=== PATIENT | female | born 2005 | race Caucasian/White ===

== ENCOUNTER → 2024-03-28 | Outpatient (CLI) | payer BC, SELFPAY ==
[2024-03-28 10:14] LABS: Basophils % (Auto) 1 % (0-2.5); Eosinophils # (Auto) 0.1 Thou/mm3 (0.0-0.5); Eosinophils % (Auto) 1 % (0-10); Hematocrit 37.8 % (36.0-46.0); Hemoglobin 12.5 g/dL (12.0-16.0); Immature Granulocytes % (Auto) 1 % (0-0); Immature Granulocytes Auto 0.05 Thou/mm3 (0.00-0.00); Lymphocytes # (Auto) 1.7 Thou/mm3 (1.0-5.0); Lymphocytes % (Auto) 22 % (10-50); Mean Corpuscular HGB Conc 33.1 g/dl (31.0-37.0); Mean Corpuscular Hemoglobin 30.1 pg (25.0-35.0); Mean Corpuscular Volume 91 fL (80-100); Monocytes # (Auto) 0.5 Thou/mm3 (0.0-0.8); Monocytes % (Auto) 6 % (0-12); Neutrophils # (Auto) 5.5 Thou/mm3 (1.8-7.7); Neutrophils % (Auto) 70 % (37-80); Nucleated Red Blood Cell % 0 /100 WBC (0); Platelet Count 144 Thou/mm3 (140-440); RDW Standard Deviation 39.9 fL (36.4-46.3); Red Blood Count 4.15 Miln/mm3 (4.00-5.20)
[2024-03-28 10:44] LABS: Alanine Aminotransferase < 7 U/L (10-49); Albumin, Serum 4.3 gm/dL (3.5-5.0); Albumin/Globulin Ratio 1.9 (1.2-2.2); Alkaline Phosphatase 108 U/L (46-116); Anion Gap 7 (7-16); Aspartate Amino Transferase 14 U/L (0-34); BUN/Creatinine Ratio 13 Ratio (12-20); Bilirubin,Total 0.9 mg/dL (0.3-1.2); Blood Urea Nitrogen 9 mg/dL (9-23); Calcium 9.8 mg/dL (8.3-10.6); Calcium (Corrected) 9.8 mg/dL (8.5-10.1); Carbon Dioxide 25.5 mMol/L (20.0-31.0); Chloride 104 mMol/L (98-107); Creatinine (Component) 0.7 mg/dL (0.6-1.3); Globulin 2.3 gm/dL (2.3-3.5); Glucose 90 mg/dL (74-106); Osmolality,Calculated 270 (275-295); Potassium 4.2 mMol/L (3.4-5.1); Sodium 136 mMol/L (136-145); Total Protein 6.6 gm/dL (5.7-8.2); Uric Acid 5.6 mg/dL (3.1-7.8); eGFR > 60 See Note
[2024-03-28 10:47] LABS: INR 0.9 (0.9-1.3); Partial Thromboplastin Time 25.4 Seconds (22.0-36.0); Prothrombin Time 10.3 Seconds (9.0-12.2)
== END | disposition home or self-care (01) ==
PROVIDERS: PCP Family Medicine; Referring Provider Specialist; Visit Provider Specialist
DX: I10 Essential (primary) hypertension (principal)
CPT/HCPCS: 36415; 80053; 84550; 85025; 85610; 85730

== ENCOUNTER → 2024-03-30 | Outpatient (CLI) | payer BC, SELFPAY ==
[2024-03-30 14:17] LABS: Creatinine, Urine Volume 975 mL/24hr (600-1800); Protein Total, Urine Volume 975 mL/24hr (600-1800)
[2024-03-30 14:29] LABS: Creatinine, 24 Hour Urine 1.1 gm/24hr (0.6-1.8); Creatinine,Urine 115 mg/dL (30-125); Protein Total, 24 hr Urine 156 mg/24hr (<149); Protein Total, Urine 16 mg/dL (1-14)
== END | disposition home or self-care (01) ==
LOC: SLDO 13:21
PROVIDERS: Referring Provider Specialist; Visit Provider Specialist
DX: I10 Essential (primary) hypertension (principal)
CPT/HCPCS: 82570; 84156

== ENCOUNTER → 2024-04-18 | Outpatient (CLI) | payer BC, MEDICAID, SELFPAY ==
[2024-04-19 15:42] LABS: BVAG Candida Negative (Negative); Bacterial Vaginosis Markers Negative (Negative); Candida glabrata Positive (Negative); Candida krusei PCR Negative (Negative); Trichomonas Negative (Negative)
== END | disposition home or self-care (01) ==
PROVIDERS: Referring Provider Specialist; Visit Provider Specialist
DX: Z34.83 Encounter for supervision of other normal pregnancy, third trimester (principal)
CPT/HCPCS: 81514

== ENCOUNTER 2024-04-24 15:36 | Observation (INO) | payer BC, MEDICAID, SELFPAY ==
[2024-04-24 15:43] VITALS: BMI 26.6
[2024-04-24 16:06] VITALS: BP 122/73; PULSE 75
[2024-04-24] MEDS: BETAMET ACET/BETAMET NA PH (Celestone) 6 MG/ML VIAL 12 MG IM (16:19)
[2024-04-24 16:22] VITALS: BP 125/84; PULSE 66
[2024-04-24 16:25] LABS: Collection Type, Urine Clean Catch
[2024-04-24 16:30] LABS: Basophils % (Auto) 0 % (0-2.5); Eosinophils % (Auto) 0 % (0-10); Hematocrit 33.8 % (36.0-46.0); Hemoglobin 11.2 g/dL (12.0-16.0); Immature Granulocytes % (Auto) 0 % (0-0); Immature Granulocytes Auto 0.03 Thou/mm3 (0.00-0.00); Lymphocytes # (Auto) 2.7 Thou/mm3 (1.0-5.0); Lymphocytes % (Auto) 39 % (10-50); Mean Corpuscular HGB Conc 33.1 g/dl (31.0-37.0); Mean Corpuscular Hemoglobin 29.7 pg (25.0-35.0); Mean Corpuscular Volume 90 fL (80-100); Monocytes # (Auto) 0.4 Thou/mm3 (0.0-0.8); Monocytes % (Auto) 6 % (0-12); Neutrophils # (Auto) 3.6 Thou/mm3 (1.8-7.7); Neutrophils % (Auto) 53 % (37-80); Nucleated Red Blood Cell % 0 /100 WBC (0); Platelet Count 113 Thou/mm3 (140-440); Red Blood Count 3.77 Miln/mm3 (4.00-5.20); White Blood Count 6.8 Thou/mm3 (4.5-11.0)
[2024-04-24 16:36] VITALS: BP 116/63; PULSE 69
[2024-04-24 16:50] LABS: Bilirubin,Urine Negative (Negative); Blood,Urine Negative (Negative); Clarity,Urine Clear (Clear/Hazy); Color,Urine Lt-Yellow (Lt Yel-Yel); Glucose, Urine Negative (Negative); Ketones,Urine Negative (Negative); Leukocyte Esterase,Urine Negative (Negative); Nitrite,Urine Negative (Negative); PH,Urine 6.5 (5.0-7.0); Protein,Urine Negative (Neg - Trace); RBC,Urine 4 /hpf (0-3); Specific Gravity,Urine 1.017 (1.001-1.035); Squamous Epithelial Cell,Urine 2 /hpf (0-5); Urobilinogen,Urine Negative mg/dL (0.0-1.0); WBC,Urine 1 /hpf (0-5)
[2024-04-24 16:51] VITALS: BP 128/78; PULSE 69
[2024-04-24 16:56] LABS: Alanine Aminotransferase 12 U/L (10-49); Albumin, Serum 3.9 gm/dL (3.5-5.0); Albumin/Globulin Ratio 1.7 (1.2-2.2); Alkaline Phosphatase 145 U/L (46-116); Anion Gap 10 (7-16); Aspartate Amino Transferase 16 U/L (0-34); BUN/Creatinine Ratio 10 Ratio (12-20); Bilirubin,Total 0.8 mg/dL (0.3-1.2); Blood Urea Nitrogen 7 mg/dL (9-23); Calcium 8.6 mg/dL (8.3-10.6); Calcium (Corrected) 8.7 mg/dL (8.5-10.1); Carbon Dioxide 19.2 mMol/L (20.0-31.0); Chloride 105 mMol/L (98-107); Creatinine (Component) 0.7 mg/dL (0.6-1.3); Estimated Creatinine Clearance 147.9 mL/min (>60); Globulin 2.3 gm/dL (2.3-3.5); Glucose 79 mg/dL (74-106); LDH (Lactate Dehydrogenase) 189 U/L (120-246); Osmolality,Calculated 265 (275-295); Potassium 4.1 mMol/L (3.4-5.1); Sodium 134 mMol/L (136-145); Total Protein 6.2 gm/dL (5.7-8.2); Uric Acid 6.8 mg/dL (3.1-7.8); eGFR > 60 See Note
[2024-04-24 17:06] VITALS: BP 121/79; PULSE 67
[2024-04-24 17:19] LABS: Fibrinogen 427 mg/dL (175-375); INR 0.9 (0.9-1.3); Partial Thromboplastin Time 25.6 Seconds (22.0-36.0); Prothrombin Time 9.8 Seconds (9.0-12.2)
[2024-04-24 17:22] VITALS: BP 121/77; PULSE 64
== END 2024-04-24 17:30 | disposition home or self-care (01) ==
PROVIDERS: Admitting Provider Specialist; Visit Provider Specialist
DX: O26.893 Other specified pregnancy related conditions, third trimester (principal); Z3A.36 36 weeks gestation of pregnancy; R03.0 Elevated blood-pressure reading, without diagnosis of hypertension
CPT/HCPCS: 36415; 59025; 59899; 80053; 81001; 83615; 84550; 85025; 85384; 85610; 85730; 96372; J0702

== ENCOUNTER 2024-04-25 16:49 | Observation (INO) | payer BC, MEDICAID, SELFPAY ==
[2024-04-25] VITALS (30 sets, daily range): BP systolic 117–136; BP diastolic 64–91; PULSE 64–86; O2SAT 98–99; BMI 27.1
[2024-04-25 17:39] LABS: Collection Type, Urine Clean Catch
[2024-04-25] MEDS: BETAMET ACET/BETAMET NA PH (Celestone) 6 MG/ML VIAL 12 MG IM (17:41)
[2024-04-25 17:43] LABS: Collection Time,Urine 1640 Hours; Protein Total, Urine Volume 1600 mL/24hr (600-1800); Total Volume,Urine 1600 mL (600-1800)
[2024-04-25 17:46] LABS: Bacteria,Urine Rare; Bilirubin,Urine Negative (Negative); Blood,Urine Negative (Negative); Clarity,Urine Clear (Clear/Hazy); Color,Urine Lt-Yellow (Lt Yel-Yel); Glucose, Urine Negative (Negative); Ketones,Urine Negative (Negative); Leukocyte Esterase,Urine Positive (Negative); Nitrite,Urine Negative (Negative); PH,Urine 6.5 (5.0-7.0); Protein,Urine Negative (Neg - Trace); RBC,Urine 4 /hpf (0-3); Specific Gravity,Urine 1.012 (1.001-1.035); Squamous Epithelial Cell,Urine 11 /hpf (0-5); Urobilinogen,Urine Negative mg/dL (0.0-1.0); WBC,Urine 3 /hpf (0-5)
[2024-04-25 17:47] LABS: Patient Height,Urine 69 Inches
[2024-04-25 18:11] LABS: Basophils % (Auto) 0 % (0-2.5); Eosinophils % (Auto) 0 % (0-10); Hematocrit 31.3 % (36.0-46.0); Hemoglobin 10.8 g/dL (12.0-16.0); Immature Granulocytes % (Auto) 1 % (0-0); Immature Granulocytes Auto 0.05 Thou/mm3 (0.00-0.00); Lymphocytes # (Auto) 3.4 Thou/mm3 (1.0-5.0); Lymphocytes % (Auto) 32 % (10-50); Mean Corpuscular HGB Conc 34.5 g/dl (31.0-37.0); Mean Corpuscular Hemoglobin 29.9 pg (25.0-35.0); Mean Corpuscular Volume 87 fL (80-100); Monocytes # (Auto) 0.9 Thou/mm3 (0.0-0.8); Monocytes % (Auto) 8 % (0-12); Neutrophils # (Auto) 6.4 Thou/mm3 (1.8-7.7); Neutrophils % (Auto) 59 % (37-80); Nucleated Red Blood Cell % 0 /100 WBC (0); Platelet Count 104 Thou/mm3 (140-440); RDW Standard Deviation 38.5 fL (36.4-46.3); Red Blood Count 3.61 Miln/mm3 (4.00-5.20); White Blood Count 10.7 Thou/mm3 (4.5-11.0)
[2024-04-25 18:40] LABS: Alanine Aminotransferase 12 U/L (10-49); Albumin/Globulin Ratio 1.8 (1.2-2.2); Alkaline Phosphatase 142 U/L (46-116); Anion Gap 7 (7-16); Aspartate Amino Transferase 19 U/L (0-34); BUN/Creatinine Ratio 11 Ratio (12-20); Bilirubin,Total 0.5 mg/dL (0.3-1.2); Blood Urea Nitrogen 9 mg/dL (9-23); Carbon Dioxide 24.8 mMol/L (20.0-31.0); Chloride 103 mMol/L (98-107); Creatinine (Component) 0.8 mg/dL (0.6-1.3); Estimated Creatinine Clearance 130.6 mL/min (>60); Globulin 2.2 gm/dL (2.3-3.5); Glucose 84 mg/dL (74-106); LDH (Lactate Dehydrogenase) 159 U/L (120-246); Osmolality,Calculated 267 (275-295); Potassium 4.1 mMol/L (3.4-5.1); Sodium 135 mMol/L (136-145); Total Protein 6.2 gm/dL (5.7-8.2); Uric Acid 6.8 mg/dL (3.1-7.8); eGFR > 60 See Note
[2024-04-25 18:46] LABS: Fibrinogen 352 mg/dL (175-375); INR 0.9 (0.9-1.3); Partial Thromboplastin Time 23.8 Seconds (22.0-36.0); Prothrombin Time 9.9 Seconds (9.0-12.2)
[2024-04-25 18:56] LABS: Creatinine 24 Hour,Urine 1.1 gm/24hr (0.6-1.5); Creatinine,Urine 67 mg/dL (30-125); Patient Weight,Urine 185 Pounds; Protein Total, 24 hr Urine 256 mg/24hr (<149); Protein Total, Urine 16 mg/dL (1-14)
[2024-04-25 18:57] LABS: Creatinine Clearance Urine 1 mL/min (90-139); Serum Creatinine Result 0.8 mg/dL
== END 2024-04-25 20:00 | disposition home or self-care (01) ==
PROVIDERS: Admitting Provider Specialist; Referring Provider Specialist; Visit Provider Specialist
DX: Z34.03 Encounter for supervision of normal first pregnancy, third trimester (principal); Z36.89 Encounter for other specified antenatal screening; Z3A.37 37 weeks gestation of pregnancy
CPT/HCPCS: 36415; 59899; 80053; 81001; 82575; 83615; 84156; 84550; 85025; 85384; 85610; 85730; 96372; J0702

== ENCOUNTER 2024-05-02 15:13 | Inpatient (IN) | payer BC, MEDICAID, SELFPAY ==
[2024-05-02] VITALS (45 sets, daily range): BP systolic 0–140; BP diastolic 0–103; PULSE 70–129; RESP 16; TEMP 36.8; O2SAT 97–99; BMI 27.1
[2024-05-02] MEDS: RINGERS LACTATED 1000 ML 1,000 ML 100 ML IV (16:00)
[2024-05-02 16:11] LABS: Basophils % (Auto) 0 % (0-2.5); Eosinophils # (Auto) 0.1 Thou/mm3 (0.0-0.5); Eosinophils % (Auto) 1 % (0-10); Hematocrit 35.7 % (36.0-46.0); Immature Granulocytes % (Auto) 0 % (0-0); Immature Granulocytes Auto 0.04 Thou/mm3 (0.00-0.00); Lymphocytes # (Auto) 4.5 Thou/mm3 (1.0-5.0); Lymphocytes % (Auto) 48 % (10-50); Mean Corpuscular HGB Conc 33.6 g/dl (31.0-37.0); Mean Corpuscular Volume 86 fL (80-100); Monocytes # (Auto) 0.7 Thou/mm3 (0.0-0.8); Monocytes % (Auto) 7 % (0-12); Neutrophils % (Auto) 43 % (37-80); Nucleated Red Blood Cell % 0 /100 WBC (0); Platelet Count 135 Thou/mm3 (140-440); RDW Standard Deviation 38.4 fL (36.4-46.3); Red Blood Count 4.14 Miln/mm3 (4.00-5.20); White Blood Count 9.3 Thou/mm3 (4.5-11.0)
[2024-05-02 16:36] LABS: Collection Type, Urine Clean Catch
[2024-05-02 16:54] LABS: Syphilis Nonreactive (Nonreactive)
[2024-05-02 16:56] LABS: Alanine Aminotransferase 17 U/L (10-49); Albumin, Serum 4.2 gm/dL (3.5-5.0); Albumin/Globulin Ratio 1.8 (1.2-2.2); Alkaline Phosphatase 168 U/L (46-116); Anion Gap 9 (7-16); Aspartate Amino Transferase 19 U/L (0-34); BUN/Creatinine Ratio 13 Ratio (12-20); Bilirubin,Total 0.6 mg/dL (0.3-1.2); Blood Urea Nitrogen 12 mg/dL (9-23); Calcium 8.9 mg/dL (8.3-10.6); Calcium (Corrected) 8.9 mg/dL (8.5-10.1); Carbon Dioxide 21.4 mMol/L (20.0-31.0); Chloride 104 mMol/L (98-107); Creatinine (Component) 0.9 mg/dL (0.6-1.3); Globulin 2.3 gm/dL (2.3-3.5); Glucose 100 mg/dL (74-106); LDH (Lactate Dehydrogenase) 242 U/L (120-246); Osmolality,Calculated 267 (275-295); Sodium 134 mMol/L (136-145); Total Protein 6.5 gm/dL (5.7-8.2); eGFR > 60 See Note
[2024-05-02 16:58] LABS: Bilirubin,Urine Negative (Negative); Blood,Urine Negative (Negative); Clarity,Urine Clear (Clear/Hazy); Color,Urine Yellow (Lt Yel-Yel); Glucose, Urine Negative (Negative); Hyaline Casts,Urine < 1 /hpf (0-1); Ketones,Urine Negative (Negative); Leukocyte Esterase,Urine Negative (Negative); Nitrite,Urine Negative (Negative); PH,Urine 6.5 (5.0-7.0); Protein,Urine 1+ (Neg - Trace); RBC,Urine 2 /hpf (0-3); Specific Gravity,Urine 1.021 (1.001-1.035); Squamous Epithelial Cell,Urine 1 /hpf (0-5); Urobilinogen,Urine Negative mg/dL (0.0-1.0); WBC,Urine 2 /hpf (0-5)
--- NOTE | 2024-05-02 17:00 | PD.LDHP ---
Documentation for date of: 05/02/24 OB Labor/Induct. HPI History of Present Illness History of present illness: H and P dictated in Nuance [id number] History of Present Adequate Care: Yes Labs Labs: Negative: Hepatitis B, HIV, Chlamydia, Gonorrhea and Group Beta Strep Meds Home Medications and Allergies Home Medications ?Medication ?Instructions ?Recorded ?Confirmed ?Type vitamin-ferrous sulfate 1 tab PO QDAY 04/24/24 04/25/24 History 27 mg iron-folic acid 0.8 mg tablet Allergies Allergy/AdvReac Type Severity Reaction Status Date / Time No Known Allergies Allergy Verified 04/25/24 17:26 OB Exam Physical Exam Vital signs: Temp Pulse Resp BP Pulse Ox 98.3 F 89 16 121/80 98 05/02/24 15:20 05/02/24 16:45 05/02/24 15:20 05/02/24 16:45 05/02/24 16:57 OB Results Labs 05/02/24 15:48 05/02/24 15:48 Labs: Short CBC 05/02/24 Range/Units 15:48 WBC 9.3 (4.5-11.0) Thou/mm3 Hgb 12.0 (12.0-16.0) g/dL Hct 35.7 L (36.0-46.0) % Plt Count 135 L D (140-440) Thou/mm3 BMP 05/02/24 15:48 Sodium 134 L Potassium 4.0 Chloride 104 Carbon Dioxide 21.4 BUN 12 Creatinine 0.9 Glucose 100 Calcium 8.9 Liver Function 05/02/24 Range/Units 15:48 Total Bilirubin 0.6 (0.3-1.2) mg/dL AST 19 (0-34) U/L ALT 17 (10-49) U/L Alkaline Phosphatase 168 H (46-116) U/L Albumin 4.2 (3.5-5.0) gm/dL
[2024-05-02 17:06] LABS: Fibrinogen 427 mg/dL (175-375); INR 0.9 (0.9-1.3); Partial Thromboplastin Time 24.7 Seconds (22.0-36.0); Prothrombin Time 9.7 Seconds (9.0-12.2)
[2024-05-02 17:17] LABS: Amphetamine/Metham Scrn,Ur OB Negative (Negative); Benzoylecgonine Screen, Ur OB Negative (Negative); Opiate Screen,Urine OB Negative (Negative); THC Screen,Urine OB Negative (Negative)
[2024-05-02] MEDS: DINOPROSTONE 10 MG VAG.SUPP VAGINAL (17:47)
[2024-05-03] VITALS (137 sets, daily range): BP systolic 0–164; BP diastolic 0–98; PULSE 58–111; RESP 16–18; TEMP 36.7–36.8; O2SAT 91–100
--- NOTE | 2024-05-03 04:59 | PD.LDPN ---
Documentation for date of: 05/03/24 OB Labor Progress Note Pain Control Comments: None Pelvic Exam Comments: see RN notes Contractions Contraction frequency: irregular Assessment and Plan Comments: Cervidil cervical ripening in progress
[2024-05-03] MEDS: MISOPROSTOL 50 mCg TABLET PO (08:39)
--- NOTE | 2024-05-03 08:58 | ESHP_ITS ---
RE: MADELIN CAMARILLO : 2005 DATE OF ADMISSION: 05/02/2024 HISTORY OF PRESENT ILLNESS: This is a 18-year-old 1 para 0 with due date of 05/06/2024 with intrauterine at 38 weeks and 0 days, who presents for induction of labor for gestational hypertension. The patient has had serial 24-hour urine collections in the third trimester showing less than 300 mg of protein over 24 hours; however, she has had elevated blood pressures in the office, which started in the late third trimester at 36 weeks. She denies any headache, change in vision or right upper quadrant pain. She denies any chest pain, palpitations, shortness of breath or lower extremity pain. She reports normal movement. She denies any leaking or bleeding. She has had a platelet count that has been slightly decreased. The most recent is at 135,000 with normal liver function test, normal creatinine, and 24-hour urine protein less than 300 mg. Thus, the low platelet count appears to be due to gestational thrombocytopenia. The patient's care was positive for marijuana use with urine drug screen in 10/2023. The patient had some erythema of her lower extremities in 01/2024 and she underwent a bilateral venous Doppler, which was negative for DVT. MEDICATIONS: multivitamin 1 p.o. daily. SOCIAL HISTORY: She denies any alcohol, drug use or smoking. She has a history of marijuana use. She denies any alcohol or other drug use in her . PAST MEDICAL HISTORY: Gestational hypertension. FAMILY HISTORY: Maternal grandmother has breast cancer. Paternal uncle has diabetes. PAST SURGICAL HISTORY: Denies. REVIEW OF SYSTEMS: As above. PHYSICAL EXAMINATION: VITAL SIGNS: Blood pressure 142/92, heart rate 88, respirations 18, and temperature is 98.6. HEENT: Oropharynx and sclerae are clear. LUNGS: Clear to auscultation bilaterally. HEART: Regular rate and rhythm. ABDOMEN: Gravid, term size consistent with estimated weight of 7-1/2 pounds. PELVIC: See RN notes. EXTREMITIES: Nontender. SKIN: No gross rashes or lesions. NEUROLOGIC: No focal deficit. ASSESSMENT AND PLAN: Intrauterine at 38 weeks and 0 days, gestational hypertension, induction of labor. Anticipate spontaneous vaginal delivery. Informed consent was obtained. The patient was made aware of the risks, complications, alternatives, and benefits of the proposed procedure and she agrees. She is aware of the risk of operative vaginal delivery and delivery and agrees with these modes of delivery if indicated. DT: 16:49:09 TT: 17:21:00 Ref: [id number] - TID: [id number]
[2024-05-03] MEDS: fentaNYL CIT INJ 50 mCg/ML AMP 2ML 100 MCG IV (11:12)
[2024-05-03] MEDS: RINGERS LACTATED 1000 ML 1,000 ML 100 ML IV ×2 (12:04→17:30)
--- NOTE | 2024-05-03 12:52 | PD.LDPN ---
Documentation for date of: 05/03/24 OB Labor Progress Note Pain Control Comments: Epidural Pelvic Exam Dilation (cm): 5 Effacement (%): 80 station: 0 Amniotic membrane status: Ruptured Comments: Clear Contractions Contraction frequency: q 3 m Status Comments: Category II Assessment and Plan Comments: Amnioinfusion for variable decelerations after AROM Position change as needed
[2024-05-03] MEDS: RINGERS LACTATED 1000 ML 1,000 ML 999 ML IV (13:14)
[2024-05-03] MEDS: MINERAL OIL 30 ML UDC TOP (17:15)
[2024-05-03] MEDS: OXYTOCIN in NS 20 units 20 UNIT/1,000 ML BAG 125 UNIT IV (17:21)
[2024-05-03] MEDS: BENZO/LANO/ALOE (Dermoplast) 60 GM CAN 1 SPRAY TOP (17:30)
[2024-05-03] MEDS: MISOPROSTOL 200 mCg TABLET 800 MCG PR (17:40)
--- NOTE | 2024-05-03 17:42 | PD.LDDS ---
DS: Providers Provider Date of admission: 05/02/24 15:13 Primary care physician: Physician No Primary/Family Admitting Provider: Gregory Peters MD Attending Provider on Admission: Gregory Peters MD Attending Provider on DC: Gregory Peters MD Discharging Provider: Gregory Peters MD DS: Diagnosis Problem List Completed Was Problem List Reviewed/Reconciled?: Yes Summary/Hosp Course Brief History: H and P dictated in Nuance [id number] Time Spent with Patient Time attestation: Total time spent providing and/or coordinating discharge services: Exam Vital Signs Temp Pulse Resp BP Pulse Ox 98.1 F 99 16 139/88 H 100 05/03/24 12:21 05/03/24 17:18 05/03/24 12:21 05/03/24 17:18 05/03/24 17:21 Discharge Plan Plan Patient Disposition: HOME (Self Care) Patient condition on transfer: Stable Prescriptions/Referrals Prescriptions/Med Rec: New ibuprofen 600 mg tablet 600 mg PO Q6H PRN (Reason: pain) Qty: 30 0RF Continued vit-ferrous sulfat-FA 27 mg iron- 0.8 mg Tablet 1 tab PO QDAY Referrals: No Primary/Family,Physician [Primary Care Provider] - Patient/Caregiver Discharge Instructions Discharge Activity: activity as tolerated Other Discharge Activity Instructions:: Follow up office 6 weeks. Education Materials: After a Vaginal , Breast Care After Print Language: Lithuanian Activity Restrictions/Additional Instructions: continue vitamin, office visit in 6 weeks. Stand Alone Forms: Mercedes Award Info., Patient Portal Info Letter Discharge Order Discharge Orders: Discharge (Routine); Ordered 05/05/24 Ordered By: Gregory Peters Planned Discharge Date 05/05/24
[2024-05-03] MEDS: IBUPROFEN TAB 400 MG TABLET 800 MG PO (17:59)
--- NOTE | 2024-05-03 20:29 | PD.LDDELS ---
Data ([facility]) Data : 1 Para: 0 Term: 0 : 0 : 0 Delivery Data ([facility]) Labor Data ROM Date: 05/03/24 ROM Time: 12:46 Rupture Type: AROM Amniotic Fluid: Clear Delivery Data EDC: 05/06/24 EDC calculated by:: LMP/early US confirmation Labor Onset Stage 1 Date: 05/03/24 Labor Onset Stage 1 Time: 12:46 Labor Onset Stage 2 Date: 05/03/24 Labor Onset Stage 2 Time: 16:56 Delivery Date: 05/03/24 Delivery Time: 17:21 Gestational age (weeks): 38 Gestational age (days): 1 Placenta Delivery Date: 05/03/24 Placenta Delivery Time: 17:32 Delivered by: Gregory Peters Delivery nurse: Faiza Clark Other staff at delivery: Nursery Nurse Other staff at delivery: Nurse Other staff at delivery: Danuta Mckay Other staff at delivery: Jody Jones Delivery Method Delivery: Vaginal Delivery Type: Spontaneous Presentation: Vertex Position: OA Anesthesia Type Primary Anesthesia: Epidural Placenta Placenta Delivery: Spontaneous Placenta Cultures Obtained: No Placenta Sent for Examination: No Cord Sample: Cord Blood Obtained Lacerations #1: Perineal: 2nd degree Labial: left upper Perineal repair Sutures used for repair: 3.0 Chromic Umbilical Cord Nuchal Cord: x1 Additional Procedures None Complications Complications: None Data ([facility]) Data Gender: Male Weight Grams: 2890 1 Minute Total: 9 5 Minute Total: 9
[2024-05-03 23:49] LABS: Basophils % (Auto) 0 % (0-2.5); Eosinophils % (Auto) 0 % (0-10); Hematocrit 30.1 % (36.0-46.0); Hemoglobin 10.3 g/dL (12.0-16.0); Immature Granulocytes % (Auto) 0 % (0-0); Immature Granulocytes Auto 0.05 Thou/mm3 (0.00-0.00); Lymphocytes # (Auto) 3.2 Thou/mm3 (1.0-5.0); Lymphocytes % (Auto) 26 % (10-50); Mean Corpuscular HGB Conc 34.2 g/dl (31.0-37.0); Mean Corpuscular Hemoglobin 29.5 pg (25.0-35.0); Mean Corpuscular Volume 86 fL (80-100); Monocytes # (Auto) 0.8 Thou/mm3 (0.0-0.8); Monocytes % (Auto) 6 % (0-12); Neutrophils % (Auto) 67 % (37-80); Nucleated Red Blood Cell % 0 /100 WBC (0); Platelet Count 81 Thou/mm3 (140-440); RDW Standard Deviation 38.7 fL (36.4-46.3); Red Blood Count 3.49 Miln/mm3 (4.00-5.20)
[2024-05-04] VITALS (7 sets, daily range): BP systolic 125–145; BP diastolic 80–94; PULSE 80–98; RESP 16–18; TEMP 36.7–37.6; O2SAT 97–98
[2024-05-04] MEDS: ACETAMINOPHEN 325 MG TABLET 650 MG PO ×2 (05:27→19:32)
[2024-05-04 06:49] LABS: Basophils % (Auto) 0 % (0-2.5); Eosinophils % (Auto) 0 % (0-10); Hematocrit 29.1 % (36.0-46.0); Hemoglobin 9.8 g/dL (12.0-16.0); Immature Granulocytes % (Auto) 0 % (0-0); Immature Granulocytes Auto 0.04 Thou/mm3 (0.00-0.00); Lymphocytes # (Auto) 3.5 Thou/mm3 (1.0-5.0); Lymphocytes % (Auto) 31 % (10-50); Mean Corpuscular HGB Conc 33.7 g/dl (31.0-37.0); Mean Corpuscular Hemoglobin 29.3 pg (25.0-35.0); Mean Corpuscular Volume 87 fL (80-100); Monocytes # (Auto) 0.6 Thou/mm3 (0.0-0.8); Monocytes % (Auto) 6 % (0-12); Neutrophils # (Auto) 6.9 Thou/mm3 (1.8-7.7); Neutrophils % (Auto) 63 % (37-80); Nucleated Red Blood Cell % 0 /100 WBC (0); Platelet Count 85 Thou/mm3 (140-440); RDW Standard Deviation 39.6 fL (36.4-46.3); Red Blood Count 3.34 Miln/mm3 (4.00-5.20); White Blood Count 11.1 Thou/mm3 (4.5-11.0)
[2024-05-04 07:02] LABS: Alanine Aminotransferase 12 U/L (10-49); Albumin, Serum 3.3 gm/dL (3.5-5.0); Albumin/Globulin Ratio 1.7 (1.2-2.2); Alkaline Phosphatase 122 U/L (46-116); Anion Gap 4 (7-16); Aspartate Amino Transferase 23 U/L (0-34); BUN/Creatinine Ratio 10 Ratio (12-20); Bilirubin,Total 0.7 mg/dL (0.3-1.2); Blood Urea Nitrogen 8 mg/dL (9-23); Calcium 8.3 mg/dL (8.3-10.6); Calcium (Corrected) 8.9 mg/dL (8.5-10.1); Carbon Dioxide 23.6 mMol/L (20.0-31.0); Chloride 108 mMol/L (98-107); Creatinine (Component) 0.8 mg/dL (0.6-1.3); Estimated Creatinine Clearance 130.5 mL/min (>60); Globulin 1.9 gm/dL (2.3-3.5); Glucose 83 mg/dL (74-106); Osmolality,Calculated 269 (275-295); Potassium 4.1 mMol/L (3.4-5.1); Sodium 136 mMol/L (136-145); Total Protein 5.2 gm/dL (5.7-8.2); eGFR > 60 See Note
[2024-05-04 07:28] LABS: Fibrinogen 416 mg/dL (175-375); INR 0.9 (0.9-1.3); Prothrombin Time 9.9 Seconds (9.0-12.2)
--- NOTE | 2024-05-04 11:07 | PC.SS ---
STAINING MACHINE OPERATOR conducted bedside contact with the patient to address nursing referral indicating patient possessed history of THC use. STAINING MACHINE OPERATOR introduced self, role and basis of referral. Patient informed STAINING MACHINE OPERATOR that she tested positive for THC during . Per patient, she did not know at the time that she was . Once confirmed patient ceased use. Patient does not intend to use THC due to plans to breastfeed infant. Infant, Reagan; is the patient?s first child. Infant delivered naturally. FOB, Rico Murray; will be active in rearing of the . Patient resides at home with her mother. Patient is employed as an statistics tutor. Patient is aligned with [facility]. Patient will apply for SNAP. Patient will not apply for TANF. Patient denies history of alcohol/drug use. Patient denies CWS intervention. Patient denies episodes of domestic violence. Dr. Peters provided OB services. Patient states consistency with OB appointments. Patient has access to appropriate supplies and equipment, to include carseat. FOB will provide transportation upon discharge. Patient describes possessing support system consisting of mother and extended family. STAINING MACHINE OPERATOR provided information to community resources. No further intervention required at this time, social media executive will be available to address any further concerns. STAINING MACHINE OPERATOR updated bedside nurse.
[2024-05-04] MEDS: IBUPROFEN TAB 400 MG TABLET 800 MG PO ×2 (15:29→23:57)
--- NOTE | 2024-05-04 19:54 | ESPR_ITS ---
RE: MADELIN CAMARILLO : 2005 DATE OF SERVICE: 05/04/2024 SUBJECTIVE: day #1, patient denies any problem or complaint. She is voiding, ambulating, tolerating diet, passing flatus. She denies any excessive vaginal bleeding. She denies any dizziness or lightheadedness. She denies any chest pain, palpitations, shortness of breath or lower extremity pain. OBJECTIVE: Vital Signs: Blood pressure 137/92, heart rate 82, respirations 16, temperature 98.0, and pulse oximetry 98% on room air. Lungs: Clear to auscultation bilaterally. Heart: Regular rate and rhythm. Abdomen: Fundus is firm. Extremities: Nontender. LABORATORY DATA: Hemoglobin predelivery is 10.3, postdelivery is 9.8. ASSESSMENT: 1. day #1, status post spontaneous vaginal delivery. 2. Gestational hypertension. 3. Gestational thrombocytopenia with stable platelet count. PLAN: Discharge home tomorrow. Discharge instructions given. Follow up in the office in 6 weeks. DT: 18:45:55 TT: 19:52:00 Ref: [id number] - TID: [id number]
[2024-05-05] VITALS: BP 115/71; PULSE 72; RESP 16; TEMP 36.6; O2SAT 98
[2024-05-05] MEDS: ACETAMINOPHEN 325 MG TABLET 650 MG PO (04:29)
[2024-05-05 08:00] VITALS: BP 118/79; PULSE 90; RESP 18; TEMP 36.6; O2SAT 98
--- NOTE | 2024-05-05 08:01 | PC.NURSE ---
patient decided to take the flu vaccine later
--- NOTE | 2024-05-05 12:01 | ESPR_ITS ---
RE: MADELIN CAMARILLO : 2005 DATE OF SERVICE: 05/05/2024 SUBJECTIVE: day #1, the patient denies any problem or complaint. OBJECTIVE: Vital Signs: Stable. She is afebrile. Abdomen: Fundus is firm. Extremities: Nontender. ASSESSMENT: day #1, status post spontaneous vaginal delivery. PLAN: Discharge home. Discharge instructions given. Follow up in the office in 6 weeks. DT: 10:07:40 TT: 12:00:00 Ref: [id number] - TID: [id number]
== END 2024-05-05 10:39 | disposition home or self-care (01) | DRG 806 ==
LOC: S4SX 05-03 17:39 → S4NX 05-04 02:16
PROVIDERS: Admitting Provider Specialist; Visit Provider Specialist
DX: O13.4 Gestational [pregnancy-induced] hypertension without significant proteinuria, complicating childbirth (principal); O99.12 Other diseases of the blood and blood-forming organs and certain disorders involving the immune mechanism complicating childbirth; Z37.0 Single live birth; D69.59 Other secondary thrombocytopenia; O69.81X0 Labor and delivery complicated by cord around neck, without compression, not applicable or unspecified; O70.1 Second degree perineal laceration during delivery; O76 Abnormality in fetal heart rate and rhythm complicating labor and delivery; Z3A.38 38 weeks gestation of pregnancy
CPT/HCPCS: 36415; 59409; 80053; 80307; 81001; 83615; 84550; 85025; 85384; 85610; 85730; 86780; 86850; 86900; 86901; 94762; J2590; J2795; J3010; J7120; S0191; A9270

== ENCOUNTER 2024-12-17 17:56 | Emergency (ER) | payer BC, MEDICAID, SELFPAY ==
[2024-12-17 17:57] VITALS: BMI 23.6
[2024-12-17 18:14] VITALS: BP 124/79; PULSE 97; RESP 19; TEMP 37.4; O2SAT 99
--- NOTE | 2024-12-17 18:51 | PD.EDADULT ---
ED General RME/HPI General Chief complaint: Back Pain/Injury Stated complaint: LOWER BACK PAIN Time Seen by Provider: 12/17/24 18:22 Arrival date/time: 12/17/24 17:56 RME / HPI RME / HPI narrative: 19-year-old female presents to the ED with an onset of low back pain that began approximately 3 hours ago. She has felt feverish and has had nausea. She denies any dysuria or frequency. She is currently on her menstrual cycle so unknown if she has hematuria. Related Data Home Medications ?Medication ?Instructions ?Recorded ?Confirmed vitamin-ferrous sulfate 1 tab PO QDAY 04/24/24 04/25/24 27 mg iron-folic acid 0.8 mg tablet Previous Rx's ?Medication ?Instructions ?Recorded ibuprofen 600 mg tablet 600 mg PO Q6H PRN pain #30 tabs 05/05/24 Allergies Allergy/AdvReac Type Severity Reaction Status Date / Time No Known Allergies Allergy Verified 12/17/24 17:56 Review of Systems Review of Systems Systems Reviewed: All systems reviewed, normal except as documented Past Medical History Past Medical History NEUROLOGIC: Negative Neurological Disorders CARDIAC: Negative Cardiac Disorders or Congestive Heart Failure RESPIRATORY: Negative Chronic Obstructive Pulmonary Disease (COPD) GASTROINTESTINAL: Negative Gastrointestinal Disorders GENITOURINARY: Negative Genitourinary Disorders or Renal Disease REPRODUCTIVE: Negative Genital Herpes, Gonorrhea, Previous Pregnancies or Syphilis MUSCULOSKELETAL: Negative Musculoskeletal Disorders ENDOCRINE: Negative Endocrine Disorders, Diabetes Mellitus Type 1 or Diabetes Mellitus Type 2 HEMATOLOGIC: Negative Blood Disorders PSYCHO/SOCIAL: Positive Recreational Drug Use (THC); Negative Depression, Anxiety or Post Traumatic Stress Disorder OTHER HISTORY: Negative Autoimmune Disease, Falls, Blood Transfusions, Blood Transfusion Reaction or Anesthesia Reactions Family History FAMILY HISTORY: Positive Family Cardiac Disorders (Maternal Side Hyptertension) and Family Cancer (Breast Cancer Maternal Grandmother); Negative Family Psychiatric Problems, Family Respiratory Disorders, Family Gastrointestinal Problems, Family Surgery or Family Anesthesia Reaction Social History SMOKING STATUS: Never smoker SUBSTANCE USE: does not use ED Exam Narrative Physical exam: A&O, afebrile and non-toxic appearing 19-year-old female, no acute distress. Lung are clear, RRR, Abdomen is soft with mild right pelvic tenderness, and non-distended. Positive CVA tenderness bilaterally. Moves all extremities well. Course Course Course Narrative: Patient is vital signs are stable. Blood pressure 124/79, pulse 97, respirations 19 and nonlabored, temperature 99.4, O2 sat 99% on room air. CBC reveals a normal white count, normal H&H and normal platelets. CMP reveals normal electrolytes, normal BUN and creatinine, normal LFTs. Amylase and lipase are normal at 69/33. CRP is normal at less than 0.5, lactic acid is normal at 0.9. Urinalysis reveals clear light yellow urine with a specific gravity of 1.013 with 1+ ketones and 2+ blood. Negative nitrites and negative leukocyte esterase. Urine hCG is negative. Patient was given sodium chloride 1000 mL as well as Zofran 4 mg IV. She was also given Toradol 30 mg IVP. This patient became upset because she had to wait so long. She demanded her IV be removed. When I went in to go over her test results she stopped me prior to giving her CT results and stated she did not want to get her CT results and said just take this IV out, I have to get out of here . I advised the patient that she would be able to obtain her CT results through medical records, as she did not want to listen to my explanation of results and became argumentative. Quality Measures none Orders Category Date Time Status CT Screening NOW Care 12/17/24 19:[address] Screening X1 Care 12/17/24 19:47 Completed IV [Insert IV] NOW Care 12/17/24 19:45 Active NPO STAT Care 12/17/24 19:[address] abdomen pelvis w con Stat Exams 12/17/24 19:47 Completed Amylase Stat Lab 12/17/24 20:15 Completed Blood Culture (Lab) Stat Lab 12/17/24 20:15 Received CBC Stat Lab 12/17/24 20:15 Completed CRP [C-Reactive Protein] Stat Lab 12/17/24 20:15 Completed Comprehensive Metabolic Panel Stat Lab 12/17/24 20:15 Completed HCG Qualitative,Urine Stat Lab 12/17/24 18:51 Completed Lactic Acid [Lactate (Lactic Acid)] Stat Lab 12/17/24 20:15 Completed Lipase Stat Lab 12/17/24 20:15 Completed Magnesium Stat Lab 12/17/24 20:15 Completed Phosphorous Stat Lab 12/17/24 20:15 Completed Urinalysis, C/S if Indicated Stat Lab 12/17/24 18:51 Completed Ketorolac Inj [Toradol Inj] Med 12/17/24 21:24 Discontinued 30 mg IVP X1 ONE Ondansetron Inj [Zofran Inj] Med 12/17/24 19:45 Discontinued 4 mg IVP X1 ONE Sodium Chloride 0.9% 1000 ml [Ns] 1,000 ml Med 12/17/24 19:45 Discontinued IV 999 mls/hr Vital Signs Vital signs: Vital Signs Temperature 99.4 F 12/17/24 18:14 Pulse Rate 97 12/17/24 18:14 Respiratory Rate 19 12/17/24 18:14 Blood Pressure 124/79 12/17/24 18:14 Pulse Oximetry (%) 99 12/17/24 18:14 Oxygen Delivery Method Room Air 12/17/24 18:14 Discharge Plan Plan Patient Disposition: Elopement Prescriptions/Referrals Prescriptions/Med Rec: No Action vit-ferrous sulfat-FA 27 mg iron- 0.8 mg Tablet 1 tab PO QDAY ibuprofen 600 mg tablet 600 mg PO Q6H PRN (Reason: pain) Qty: 30 0RF Referrals: Any Shanks MD [Primary Care Provider] - In 1 week Problem List Clinical Impression: Abdominal pain Patient/Caregiver Discharge Instructions Print Language: Ecuadorean PA/ARC WELDING MACHINE OPERATOR Supervising Physician PA/ARC WELDING MACHINE OPERATOR Supervising Physician: Dr. Lockhart [facility] [place] Narrative [facility] [place] hospital course: Symptoms, exam and diagnostic studies are consistent with: Abdominal pain, unknown diagnosis at this time is all labs and CT report are negative for acute process. Patient was discharged home in stable condition. Patient/family advised to follow-up with their PCP in 24-48 hours. Encouraged to return to the ED for any new or worsening symptoms. Procedures done or offered: Patient was given Toradol 30 mg IV, Zofran 4 mg IV as well as sodium chloride 1000 mL IV. Labs including CBC, CMP, amylase, lipase, lactic, CRP, urinalysis and urine were all performed and negative for acute process. CT of the abdomen and pelvis was negative for acute process. Clinical Information Provided by patient Medical Records Reviewed None Meds/Rx Considered, not Ordered None Labs/Rad/Tests considered, not Ordered None Chronic Illness/Social Conditions which may negatively complicate care or outcome(s)-explain: None or not applicable EKG EKG not done Lab Interpretation Labs: interpreted by wi Lab(s) interpretation(s): As noted above Imaging Imaging interpretation: see narrative above Radiology reports / interpretation(s): As noted above Medication Administration(s) Medication Administration History Discontinued Medications Sodium Chloride (Ns) 1,000 mls @ 999 mls/hr IV .Q1H1M ONE Stop: 12/17/24 20:45 Last Infusion: 12/17/24 22:01 Dose: Infused Documented By: Admin: 12/17/24 20:39 Dose: 999 mls/hr Documented By: BASSEM Ketorolac Tromethamine (Ketorolac Inj 30 Mg/Ml Vial) 30 mg IVP X1 ONE Stop: 12/17/24 21:25 Last Admin: 12/17/24 22:00 Dose: 30 mg Documented By: BASSEM Ondansetron HCl (Ondansetron Inj 2 Mg/Ml Inj 2 Ml) 4 mg IVP X1 ONE; Protocol Stop: 12/17/24 19:46 Last Admin: 12/17/24 20:39 Dose: 4 mg Documented By: BASSEM As noted above Diagnosis Differential diagnosis: Pyelonephritis, UTI, appendicitis, cholecystitis, ovarian cyst Differential dx and/or dx ruled out: Pyelonephritis, UTI, appendicitis, cholecystitis Most likely dx, and/or detailed dx discussion: Abdominal pain, unknown source. Dispositon Disposition: other (Elopement) Disposition comments: Elopement
[2024-12-17 19:04] LABS: Collection Type, Urine Clean Catch
[2024-12-17 19:10] LABS: Bilirubin,Urine Negative (Negative); Blood,Urine 2+ (Negative); Clarity,Urine Clear (Clear/Hazy); Color,Urine Lt-Yellow (Lt Yel-Yel); Culture Indicated,Urine Not Indicated; Glucose, Urine Negative (Negative); Ketones,Urine 1+ (Negative); Leukocyte Esterase,Urine Negative (Negative); Nitrite,Urine Negative (Negative); PH,Urine 7.5 (5.0-7.0); Protein,Urine Negative (Neg - Trace); RBC,Urine 1 /hpf (0-3); Specific Gravity,Urine 1.013 (1.001-1.035); Squamous Epithelial Cell,Urine 1 /hpf (0-5); Urobilinogen,Urine Negative mg/dL (0.0-1.0); WBC,Urine 1 /hpf (0-5)
[2024-12-17 19:21] LABS: HCG Qualitative,Urine Negative
--- NOTE | 2024-12-17 19:47 | XR_ITS ---
Examination: CT abdomen with intravenous contrast CT pelvis with intravenous contrast 2-D coronal reconstructions 2-D sagittal reconstructions Date and time of exam:December 17, 2024 10:16 PM INDICATIONS: Right flank. Right lower abdomen pain today CTDI: vol (mGy 7.62. DLP: (mGycm) 417. Technique: Multiple axial sections of the abdomen and pelvis have been obtained. 64 slice high-resolution scanner used. 3 mm axial sections have been obtained, post intravenous injection 60 cc [id number] 2-D sagittal, coronal reconstructions obtained. Low dose protocols were performed. One or more of the following dose reduction techniques were used; automated exposure control, adjustment of the mA and/or KV according to patient size, use of iterative reconstruction technique. Findings: No focal liver or splenic lesion Contracted gallbladder. No pancreatic or adrenal mass. No renal or ureteral calculi, no hydronephrosis Aorta normal size. Normal appendix No bowel obstruction Anteverted uterus, partially bicornuate Urinary bladder intact IMPRESSION: Normal appendix. No acute process in the abdomen or pelvis
[2024-12-17 20:35] LABS: Lactate (Lactic Acid) 0.9 mMol/L (0.4-2.0)
[2024-12-17] MEDS: SODIUM CHLORIDE 0.9% 1000 ML 1,000 ML 999 ML IV (20:39)
[2024-12-17] MEDS: ONDANSETRON INJ 2 MG/ML INJ 2 ML 4 MG IVP (20:39)
[2024-12-17 20:45] LABS: Basophils # (Auto) 0.0 Thou/mm3 (0.0-0.2); Basophils % (Auto) 0 % (0-2.5); Eosinophils # (Auto) 0.1 Thou/mm3 (0.0-0.5); Eosinophils % (Auto) 1 % (0-10); Hematocrit 39.0 % (36.0-46.0); Hemoglobin 12.3 g/dL (12.0-16.0); Immature Granulocytes Auto 0.03 Thou/mm3 (0.00-0.00); Lymphocytes # (Auto) 1.0 Thou/mm3 (1.0-4.8); Lymphocytes % (Auto) 11 % (10-50); Mean Corpuscular HGB Conc 31.5 g/dl (31.0-37.0); Mean Corpuscular Hemoglobin 25.6 pg (25.0-35.0); Mean Corpuscular Volume 81 fL (80-100); Monocytes # (Auto) 0.5 Thou/mm3 (0.0-0.8); Monocytes % (Auto) 5 % (0-12); Neutrophils # (Auto) 7.5 Thou/mm3 (1.8-7.7); Neutrophils % (Auto) 83 % (37-80); Nucleated Red Blood Cell # 0.00 Thou/mm3 (0.00-0.00); Nucleated Red Blood Cell % 0 /100 WBC (0); Platelet Count 178 Thou/mm3 (140-440); RDW Standard Deviation 45.2 fL (36.4-46.3); Red Blood Count 4.81 Miln/mm3 (4.00-5.20); White Blood Count 9.1 Thou/mm3 (4.5-11.0)
[2024-12-17 21:17] LABS: Alanine Aminotransferase 13 U/L (10-49); Albumin, Serum 5.1 gm/dL (3.5-5.0); Albumin/Globulin Ratio 2.0 (1.2-2.2); Alkaline Phosphatase 70 U/L (46-116); Amylase 69 U/L (30-118); Anion Gap 11 (7-16); Aspartate Amino Transferase 19 U/L (0-34); BUN/Creatinine Ratio 9 Ratio (12-20); Bilirubin,Total 2.9 mg/dL (0.3-1.2); Blood Urea Nitrogen 10 mg/dL (9-23); C-Reactive Protein < 0.5 mg/dL (0.0-0.9); Calcium 9.8 mg/dL (8.3-10.6); Calcium (Corrected) 9.8 mg/dL (8.5-10.1); Carbon Dioxide 23.8 mMol/L (20.0-31.0); Chloride 106 mMol/L (98-107); Creatinine (Component) 1.1 mg/dL (0.6-1.3); Estimated Creatinine Clearance 85.3 mL/min (>60); Globulin 2.5 gm/dL (2.3-3.5); Glucose 92 mg/dL (74-106); Lipase 33 U/L (12-53); Magnesium 1.8 mg/dL (1.6-2.6); Osmolality,Calculated 280 (275-295); Phosphorous 2.9 mg/dL (2.4-5.1); Potassium 3.8 mMol/L (3.4-5.1); Sodium 141 mMol/L (136-145); Total Protein 7.6 gm/dL (5.7-8.2); eGFR > 60 See Note
[2024-12-17] MEDS: KETOROLAC INJ 30 MG/ML VIAL IVP (22:00)
--- NOTE | 2024-12-18 00:47 | PC.NURSE ---
HAYDEN INFORMED NURSE THAT PT WAS UPSET AND WANTING TO LEAVE. THIS RN SPOKE WITH PT AND PT APPEARED UPSET CRYING STATING SHE WANTED TO GO HOME, AND WAS UPSET BECAUSE PROVIDER ANIRUDH TOLD HER IF SHE DIDNT WANT TO WAIT SHE COULD LEAVE. ANIRUDH INFORMED MULTIPLE TIMES OF PT'S RESULTS BEING READY. PT ASKED FOR IV TO BE TAKEN OUT. THIS RN REMOVED IV AND PT WALKED OUT OF ER. ANIRUDH INFORMED OF INCIDENT.
== END 2024-12-18 00:53 | disposition left against medical advice (07) ==
LOC: SERX 18:39
PROVIDERS: Physician Assistant; Emergency Provider Emergency Medicine; PCP Family Medicine
DX: R10.31 Right lower quadrant pain (principal); R11.0 Nausea
CPT/HCPCS: 36415; 74177; 80053; 81001; 81025; 82150; 83605; 83690; 83735; 84100; 85025; 86140; 87040; 96361; 96374; 96375; 99283; A4649; J1885; J2405; J7030; Q9967

== ENCOUNTER 2024-12-18 08:58 | Emergency (ER) | payer BC, MEDICAID, SELFPAY ==
[2024-12-18 09:00] VITALS: BMI 23.6
[2024-12-18 09:19] VITALS: BP 120/78; PULSE 98; RESP 18; TEMP 37.8; O2SAT 99
[2024-12-18] MEDS: ONDANSETRON ODT 4 MG TABRAP PO (09:35)
[2024-12-18] MEDS: HYDROcodone/APAP 5/325 TABLET 1 TAB PO (09:35)
[2024-12-18] MEDS: KETOROLAC INJ 30 MG/ML VIAL IM (09:36)
--- NOTE | 2024-12-18 10:02 | EDNOTE_ITS ---
<Statement entered by Anyi Ambrosio MD - 12/18/24 17:44> As co-signing physician, I was present and available for consult prn. I concur with the plan and care as documented by the midlevel provider. ED Back Injury Pain RME/HPI General Chief Complaint: Back Pain/Injury Stated Complaint: BACK PAIN, FEVER, N/V SINCE TUESDAY 3PM Time Seen by Provider: 12/18/24 09:27 Arrival date/time: 12/18/24 08:58 19-year-old female presents to the Emergency Department today stating that she has been having back pain nausea vomiting and fever ongoing since yesterday at around 3 PM. Patient was evaluated yesterday patient left prior to receiving her results. Limitations: no limitations Related Data Home Medications ?Medication ?Instructions ?Recorded ?Confirmed vitamin-ferrous sulfate 1 tab PO QDAY 4 04/25/24 27 mg iron-folic acid 0.8 mg tablet Previous Rx's ?Medication ?Instructions ?Recorded ibuprofen 600 mg tablet 600 mg PO Q6H PRN pain #30 t abs 05/05/24 cephalexin 500 mg tablet 500 mg PO TID 7 days #21 tab s 12/18/24 cyclobenzaprine 10 mg tablet 10 mg PO TID PRN muscle s pasm 10 12/18/24 days #30 tab-caps hydrocodone 5 mg-acetaminophen 325 1 tab PO BID PRN pa in #6 tabs 12/18/24 mg tablet ibuprofen 800 mg tablet 800 mg PO TID PRN pain #30 t abs 12/18/24 ondansetron 4 mg disintegrating 4 mg PO Q8H PRN nausea and 12/18/24 tablet vomiting #10 tabs Allergies Allergy/AdvReac Type Severity Reaction Status Date / Time No Known Allergies Allergy Verified 12/18/24 09:02 Review of Systems Review of Systems Systems Reviewed: All systems reviewed, normal except as documented Constitutional Constitutional: Reports system reviewed and no additional complaints, except as documented, Denies fever(s) and Denies headache(s) Eyes Eyes: Reports system reviewed and no additional complaints, except as documented and Denies blurry vision ENT Ears, Nose, Mouth, and Throat: Reports system reviewed and no additional complaints, except as documented, Denies headache(s), Denies nasal congestion and Denies nasal discharge Cardiovascular Cardiovascular: Reports system reviewed and no additional complaints, except as documented, Denies chest pain and Denies dyspnea Respiratory Respiratory: Reports system reviewed and no additional complaints, except as documented, Denies chest congestion, Denies cough and Denies dyspnea Gastrointestinal Gastrointestinal: Reports system reviewed and no additional complaints, except as documented, Denies abdominal pain, Reports nausea and Reports vomiting Musculoskeletal Musculoskeletal: Reports system reviewed and no additional complaints, except as documented, Denies abnormal gait, Reports back pain, Denies numbness, Denies radiating pain into limb, Denies stiffness and Denies tingling Integumentary/Breasts Skin/Breast: Reports system reviewed and no additional complaints, except as documented and Denies rash Neurologic Neurologic: Reports system reviewed and no additional complaints, except as documented, Reports as per HPI, Denies abnormal gait, Denies headache(s), Denies numbness and Denies tingling Past Medical History Past Medical History NEUROLOGIC: Negative Neurological Disorders CARDIAC: Negative Cardiac Disorders or Congestive Heart Failure RESPIRATORY: Negative Chronic Obstructive Pulmonary Disease (COPD) or Asthma GASTROINTESTINAL: Negative Gastrointestinal Disorders GENITOURINARY: Negative Genitourinary Disorders or Renal Disease REPRODUCTIVE: Negative Genital Herpes, Gonorrhea, Previous Pregnancies or Syphilis MUSCULOSKELETAL: Negative Musculoskeletal Disorders ENDOCRINE: Negative Endocrine Disorders, Diabetes Mellitus Type 1 or Diabetes Mellitus Type 2 HEMATOLOGIC: Negative Blood Disorders or Sickle Cell Disease PSYCHO/SOCIAL: Positive Recreational Drug Use (THC); Negative Depression, Anxiety or Post Traumatic Stress Disorder OTHER HISTORY: Negative Autoimmune Disease, Falls, Blood Transfusions, Blood Transfusion Reaction or Anesthesia Reactions Family History FAMILY HISTORY: Positive Family Cardiac Disorders (Maternal Side Hyptertension) and Family Cancer (Breast Cancer Maternal Grandmother); Negative Family Psychiatric Problems, Family Respiratory Disorders, Family Gastrointestinal Problems, Family Surgery or Family Anesthesia Reaction Social History SMOKING STATUS: Never smoker SUBSTANCE USE: does not use ED Exam General Limitations: Present no limitations General appearance: Present alert and in no apparent distress Head Head exam: Present atraumatic, normocephalic and normal inspection Eye Eye exam: Present normal appearance, PERRL and EOMI; Absent conjunctival injection ENT ENT exam: Present normal exam, normal oropharynx and mucous membranes moist Neck Neck exam: Present normal inspection, full ROM and trachea midline Chest Chest inspection: Present normal inspection and symmetric chest wall rise Respiratory Respiratory exam: Present normal lung sounds bilaterally; Absent respiratory distress Cardiovascular Cardiovascular exam: Present regular rate, normal rhythm and normal heart sounds Abdominal Exam Abdominal exam: Present soft and normal bowel sounds; Absent distention, tenderness, guarding, rebound or rigidity Extremities Exam Extremities exam: Present normal inspection and full ROM Back Exam Back exam: Present normal inspection, full ROM, tenderness, muscle spasm and paraspinal tenderness; Absent CVA tenderness (R) or CVA tenderness (L) Neurological Exam Neurological exam: Present alert, oriented X3 and CN II-XII intact Psychiatric Psychiatric exam: Present normal affect and normal mood Skin Skin exam: Present warm, dry, intact and normal color Course Quality Measures none Orders Category Date Time Status HYDROcodone*/APAP 5/325 [[place] 5/325] Med 12/18/24 09:27 Discontinued 1 tab PO X1 ONE Ketorolac Inj [Toradol Inj] Med 12/18/24 09:27 Discontinued 30 mg IM X1 ONE Ondansetron Odt [Zofran Odt] Med 12/18/24 09:31 Discontinued 4 mg PO X1 ONE Vital Signs Vital signs: Vital Signs Temperature 100.1 F 12/18/24 09:19 Pulse Rate 98 12/18/24 09:19 Respiratory Rate 18 12/18/24 09:19 Blood Pressure 120/78 12/18/24 09:19 Pulse Oximetry (%) 99 12/18/24 09:19 Oxygen Delivery Method Room Air 12/18/24 09:19 O2 saturation 99% on room air within normal limits Back Pain / Injury MDM Narrative MDM Narrative:: 19-year-old female presents to the Emergency Department today stating that she has been having back pain nausea vomiting and fever ongoing since yesterday at around 3 PM. Patient was evaluated yesterday patient left prior to receiving her results. Patient reports no saddle anesthesia no loss of bowel or bladder no numbness or tingling Patient walks with steady gait no abnormal neurological findings On exam patient well-appearing patient does not appear ill or toxic Patient does report pain mostly to lower back and some nausea Patient can medication for nausea as well as pain I discussed the patient's results with her from yesterday I reviewed them in their entirety with her patient states understanding bilirubin elevated 2.9 which I explained to the patient she should follow-up with an outpatient basis Patient given a copy of her CT results Patient's labs were done less than 24 hours ago and I do not believe is indicated to repeat them at this time patient also had a CT scan which was negative last night. I explained to the patient that she can come back at any time for reevaluation should her symptoms persist or worsen patient states understanding Patient data External records reviewed:: [facility] previous records Clinical information provided by:: patient Social determinants that could affect healthcare access:: none Patient has the following chronic illnesses:: None How is presenting disease/condition affected by chronic disease/condition?: no chronic disease Evaluation data The following diagnostics were reviewed and interpreted by me:: lab results and radiology exam(s) Lab and/or radiology exams considered but not ordered:: Labs radiology reviewed Interpretation Summary: Reviewed by me Medications / Prescriptions Medications or Prescriptions considered but not ordered:: Given Medication administrations:: Medication Administration History Discontinued Medications Hydrocodone Bitart/Acetaminophen (Hydrocodone/Apap 5/325 Tablet) 1 tab PO X1 ONE Stop: 12/18/24 09:28 Last Admin: 12/18/24 09:35 Dose: 1 tab Documented By: MARQUIS Ketorolac Tromethamine (Ketorolac Inj 30 Mg/Ml Vial) 30 mg IM X1 ONE Stop: 12/18/24 09:28 Last Admin: 12/18/24 09:36 Dose: 30 mg Documented By: MARQUIS Ondansetron HCl (Ondansetron Odt 4 Mg Tabrap) 4 mg PO X1 ONE; Protocol Stop: 12/18/24 09:32 Last Admin: 12/18/24 09:35 Dose: 4 mg Documented By: MARQUIS Given Consultations Consultation(s) initiated? (list below): No Diagnosis Differential diagnosis back pain/injury: lumbar radiculopathy, sciatica and strain of lumbar region Most likely diagnosis given after review of the tests above:: Back pain Admission Indicated Admission indicated?: not indicated Admission Request Was there a request for admission?: No Disposition Plan Disposition Plan: Discharge Discharge Attestation Discharge Attestation: The patient and all family members were given an opportunity to ask questions and understood the discharge instructions. Discharge instructions specifically effects, indications for sooner follow up or return to the emergency department, and the expected course of current diagnosis. Patient condition: Stable Discharge Plan Plan Patient Disposition: HOME (Self Care) Discharge Disposition comment: Stable Prescriptions/Referrals Prescriptions/Med Rec: New cyclobenzaprine 10 mg tablet 10 mg PO TID PRN (Reason: muscle spasm) 10 Days Qty: 30 0RF ibuprofen 800 mg tablet 800 mg PO TID PRN (Reason: pain) Qty: 30 0RF hydrocodone-acetaminophen 5-325 mg tablet 1 tab PO BID MDD 10 PRN (Reason: pain) Qty: 6 0RF cephalexin 500 mg tablet 500 mg PO TID 7 Days Qty: 21 0RF ondansetron 4 mg tablet,disintegrating 4 mg PO Q8H PRN (Reason: nausea and vomiting) Qty: 10 0RF No Action vit-ferrous sulfat-FA 27 mg iron- 0.8 mg Tablet 1 tab PO QDAY ibuprofen 600 mg tablet 600 mg PO Q6H PRN (Reason: pain) Qty: 30 0RF Problem List Clinical Impression: Back pain Patient/Caregiver Discharge Instructions Education Materials: ED Back Care Tips Additional Instructions: Please follow up with your primary care doctor in the next 24-48hrs for any worsening symptoms return here immediately Print Language: [place] Stand Alone Forms: Mercedes Award Info., Patient Portal Info Letter PA/PAYER SPECIALIST Supervising Physician PA/PAYER SPECIALIST Supervising Physician: dr ambrosio
== END 2024-12-18 09:52 | disposition home or self-care (01) ==
LOC: SERX 09:44
PROVIDERS: Emergency Provider Nurse Practitioner Primary Care; PCP Family Medicine
DX: M54.9 Dorsalgia, unspecified (principal)
CPT/HCPCS: 96372; 99283; J1885; Q0162; A9270

== ENCOUNTER → 2025-02-05 | Outpatient (CLI) | payer BC, MEDICAID, SELFPAY ==
[2025-02-05 18:26] LABS: BVAG Candida Negative (Negative); Bacterial Vaginosis Markers Negative (Negative); Candida glabrata Negative (Negative); Candida krusei PCR Negative (Negative); Trichomonas Negative (Negative)
== END | disposition home or self-care (01) ==
LOC: SLDO 14:26
PROVIDERS: Referring Provider Physician Assistant Medical; Visit Provider Physician Assistant Medical
DX: N39.0 Urinary tract infection, site not specified (principal); B37.89 Other sites of candidiasis; A59.01 Trichomonal vulvovaginitis; N76.0 Acute vaginitis
CPT/HCPCS: 81514; 87086